=== PATIENT | male | born 1990 | race Hispanic/Latino ===

== ENCOUNTER 2017-11-25 04:58 | Emergency (ER) | payer OTHER ==
[2017-11-25 05:57] LABS: Hematocrit 43.4 % (35.5-45.6); Hemoglobin 14.7 gm/dl (11.8-15.2); Mean Corpuscular HGB Conc 34 % (32-34); Mean Corpuscular Hemoglobin 32 pg (28-32); Mean Corpuscular Volume 94 fl (84-94); Platelet Count 259 K/mm3 (140-440); Red Blood Count 4.62 M/mm3 (3.65-5.03); Red Cell Distribution Width 13.9 % (13.2-15.2)
[2017-11-25 06:24] LABS: BUN/Creatinine Ratio 19; Blood Urea Nitrogen 19 mg/dL (9-20); Calcium 9.6 mg/dL (8.4-10.2); Hemolysis Index 24
[2017-11-25 06:30] LABS: Total Cells Counted 100
[2017-11-25 06:31] LABS: Band Neutrophils # (Manual) 1.7 K/mm3; Basophils % (Manual) 0 % (0.0-1.8); Eosinophils % (Manual) 0 % (0.0-4.3); Platelet Estimate Consistent w Auto; RBC Morphology Normal
[2017-11-25] MEDS ORDERED: PEPCID IV ONE (06:39)
[2017-11-25] MEDS ORDERED: CARAFATE PO ONE (06:39)
[2017-11-25] MEDS ORDERED: REGLAN IV ONE (06:39)
[2017-11-25] MEDS ORDERED: NACL 0.9% 1000 ML 1,000 ML IV ONE (06:41)
--- NOTE | 2017-11-25 06:41 | Emergency Department Report ---
ED General Adult HPI - General Chief complaint: Overdose Stated complaint: OVERDOSE Time Seen by Provider: 11/25/17 06:07 Source: patient, family, EMS (EMS documentation reviewed), RN notes reviewed Mode of arrival: Stretcher Limitations: Other (patient does not have any recollection of the events today.) - History of Present Illness Initial comments: His is a 27-year-old gentleman who is not known to this provider previously. He is brought to the hospital by EMS. As per EMS documentation, "patient admitted to taking Percocet and drugs paraphernalia found in vehicle with patient." EMS documentation that patient was found seated in a car, unresponsive to all stimuli, extremely diaphoretic, with pupils constricted and unresponsive. Patient then became awake, was initially confused, and then became alert and oriented 4. The patient to me indicates that he accidentally cut his left hand with a hammer , and took 4 Percocets, he believes that they were 5 mg each, for pain. He denies other coingestants to me. He estimates his time of ingestion between 3: 00 and 3:30 AM. He reports that he was doing this to control his pain. He denies homicidality and suicidality. He then has no recollection of any of the aforementioned events, and woke up in the ambulance. He currently denies headache, neck pain, chest pain, abdominal pain, shortness of breath, bright red blood per rectum, black tarry stool, homicidality and suicidality. Of note, the patient has an emesis basin next to him, which appears to have coffee-ground emesis, the patient thinks that he threw up in this basin in the field. -: unknown Quality: other Consistency: other Improves with: other Worsens with: other Associated Symptoms: confusion, loss of appetite, malaise, nausea/vomiting, weakness (global weakness). denies: chest pain, cough, diaphoresis, fever/ chills, headaches, rash, seizure, shortness of breath, syncope - Related Data Previous Rx's Medication Instructions Recorded Last Taken Type Naloxone HCl [Narcan Nasal Leonard] 4 mg NS Q1HR PRN #5 spray 11/25/17 Unknown Rx Ondansetron [Zofran Odt] 4 mg PO Q8HR PRN #20 tab.rapdis 11/25/17 Unknown Rx Pantoprazole [Protonix TAB] 20 mg PO QDAY #30 tablet. 11/25/17 Unknown Rx Allergies Allergy/AdvReac Type Severity Reaction Status Date / Time No Known Allergies Allergy Unverified 11/25/17 05:14 ED Review of Systems ROS: Stated complaint: OVERDOSE Other details as noted in HPI Constitutional: malaise. denies: fever Eyes: denies: eye discharge ENT: denies: epistaxis Respiratory: denies: cough Cardiovascular: denies: chest pain Gastrointestinal: denies: abdominal pain, melena, hematochezia Musculoskeletal: arthralgia, myalgia Skin: denies: lesions Neurological: weakness Psychiatric: denies: visual hallucinations, suicidal thoughts ED Past Medical Hx - Social History Smoking Status: Current Every Day Smoker Substance Use Type: None - Medications Home Medications: Home Medications Medication Instructions Recorded Confirmed Last Taken Type Naloxone HCl [Narcan Nasal Leonard] 4 mg NS Q1HR PRN #5 spray 11/25/17 Unknown Rx Ondansetron [Zofran Odt] 4 mg PO Q8HR PRN #20 tab.rapdis 11/25/17 Unknown Rx Pantoprazole [Protonix TAB] 20 mg PO QDAY #30 tablet. 11/25/17 Unknown Rx ED Physical Exam - General Limitations: No Limitations General appearance: alert, in no apparent distress - Head Head exam: Present: atraumatic, normocephalic - Eye Eye exam: Present: normal appearance, PERRL, EOMI. Absent: nystagmus - ENT ENT exam: Present: normal exam, normal orophraynx, mucous membranes moist, normal external ear exam - Neck Neck exam: Present: normal inspection, full ROM. Absent: tenderness, meningismus - Respiratory Respiratory exam: Present: normal lung sounds bilaterally. Absent: respiratory distress - Cardiovascular Cardiovascular Exam: Present: normal rhythm, tachycardia, normal heart sounds. Absent: systolic murmur, diastolic murmur, rubs, gallop - GI/Abdominal GI/Abdominal exam: Present: soft, normal bowel sounds. Absent: distended, tenderness, guarding, rebound, rigid, pulsatile mass - Rectal Rectal exam: Present: deferred - Extremities Exam Extremities exam: Present: normal inspection, full ROM, other (2+ pulses noted in the bilateral upper, lower extremities. Compartments soft. No long bony tenderness. The pelvis is stable.). Absent: pedal edema, joint swelling, calf tenderness - Back Exam Back exam: Present: normal inspection, full ROM. Absent: tenderness, CVA tenderness (R), paraspinal tenderness, vertebral tenderness - Neurological Exam Neurological exam: Present: alert, oriented X3, CN II-XII intact, other ( Extraocular movements intact. Tongue midline. No facial droop. Facial sensation intact to light touch in the V1, V2, V3 distribution bilaterally. 5 and 5 strength in 4 extremities.. Sensation is intact to light touch in 4 extremities.). Absent: motor sensory deficit - Psychiatric Psychiatric exam: Present: normal affect, normal mood. Absent: homicidal ideation, suicidal ideation - Skin Skin exam: Present: warm, dry, intact, normal color. Absent: rash ED Course Vital Signs 11/25/17 11/25/17 11/25/17 05:09 06:34 06:43 Temperature 97.6 F Pulse Rate 99 H 75 Respiratory 18 11 L Rate Blood Pressure 137/68 O2 Sat by Pulse 99 98 Oximetry 11/25/17 11/25/17 11/25/17 06:45 07:00 08:00 Temperature Pulse Rate 91 H 107 H 80 Respiratory 14 14 12 Rate Blood Pressure 121/76 131/81 108/63 O2 Sat by Pulse 97 95 87 Oximetry 11/25/17 09:00 Temperature Pulse Rate 74 Respiratory 14 Rate Blood Pressure 106/63 O2 Sat by Pulse 97 Oximetry - Reevaluation(s) Reevaluation #1: 11/25/17 07:51 Differential diagnosis, including but not limited to: Accidental overdose, polysubstance overdose, left hand fracture, contusion, dislocation, upper GI bleed, Melissa-Salazar tear Assessment and plan: 27-year-old male with probable accidental overdose. Patient is currently alert and oriented to name, place, month, location, he is clinically sober at this time, and exhibits decision-making capacity and is free from distracting injury. His serum toxicology studies were unremarkable for significant toxicity, his laboratory studies were unremarkable with the exception of leukocytosis, which is most likely a stress reaction, possibly due to sympathomimetic: Ingestion. His emesis basin does have black coffee grounds in it. I highly doubt that the patient had an episode of loss of consciousness from the reported Percocet ingestion, and instead I suspect a polysubstance overdose. I therefore have recommended admission to the hospital for airway monitoring, cardiac monitoring, and gastroenterology evaluation. The patient is currently declining this and is going to sign out AGAINST MEDICAL ADVICE. The patient is alert and oriented 3 at this time, clinically sober, free from distracting injury, and demonstrates decision-making capacity. Patient able to describe risks benefits in his own words. The risks of leaving, including , disability, paralysis, permanent loss of quality of life were discussed with the patient who verbalized understanding in his own words. This conversation is further witnessed by both his mother and his father, and nurse Cass Pitt 11/25/17 07:53 11/25/17 15:47 ED Medical Decision Making - Lab Data Result diagrams: 11/25/17 05:25 11/25/17 05:25 Vital Signs 11/25/17 11/25/17 11/25/17 05:09 06:34 06:43 Temperature 97.6 F Pulse Rate 99 H 75 Respiratory 18 11 L Rate Blood Pressure 137/68 O2 Sat by Pulse 99 98 Oximetry 11/25/17 06:45 Temperature Pulse Rate 91 H Respiratory 14 Rate Blood Pressure 121/76 O2 Sat by Pulse 97 Oximetry Lab Results 11/25/17 11/25/17 11/25/17 Range/Units 05:25 05:25 05:25 WBC (4.5-11.0) K/mm3 RBC (3.65-5.03) M/mm3 Hgb (11.8-15.2) gm/dl Hct (35.5-45.6) % MCV (84-94) fl MCH (28-32) pg MCHC (32-34) % RDW (13.2-15.2) % Plt Count (140-440) K/mm3 Add Manual Diff Total Counted Seg Neuts % (Manual) (40.0-70.0) % Band Neutrophils % % Lymphocytes % (Manual) (13.4-35.0) % Reactive Lymphs % (Man) % Monocytes % (Manual) (0.0-7.3) % Eosinophils % (Manual) (0.0-4.3) % Basophils % (Manual) (0.0-1.8) % Metamyelocytes % % Myelocytes % % Promyelocytes % % Blast Cells % % Nucleated RBC % Seg Neutrophils # Man (1.8-7.7) K/mm3 Band Neutrophils # K/mm3 Lymphocytes # (Manual) (1.2-5.4) K/mm3 Abs React Lymphs (Man) K/mm3 Monocytes # (Manual) (0.0-0.8) K/mm3 Eosinophils # (Manual) (0.0-0.4) K/mm3 Basophils # (Manual) (0.0-0.1) K/mm3 Metamyelocytes # K/mm3 Myelocytes # K/mm3 Promyelocytes # K/mm3 Blast Cells # K/mm3 WBC Morphology Hypersegmented Neuts Hyposegmented Neuts Hypogranular Neuts Smudge Cells Toxic Granulation Toxic Vacuolation Dohle Bodies Pelger-Huet Anomaly Alexa Rods Platelet Estimate Clumped Platelets Plt Clumps, EDTA Large Platelets Giant Platelets Platelet Satelliting Plt Morphology Comment RBC Morphology Dimorphic RBCs Polychromasia Hypochromasia Poikilocytosis Anisocytosis Microcytosis Macrocytosis Spherocytes Pappenheimer Bodies Sickle Cells Target Cells Tear Drop Cells Ovalocytes Helmet Cells Roman-Crest[place] Bodies [place] Rings [place] Cells Bite Cells Crenated Cell Elliptocytes Acanthocytes (Spur) Rouleaux Hemoglobin C Crystals Schistocytes Malaria parasites Jose C Bodies Hem Pathologist Commnt Sodium 141 (137-145) mmol/L Potassium 4.1 (3.6-5.0) mmol/L Chloride 99.6 (98-107) mmol/L Carbon Dioxide 26 (22-30) mmol/L Anion Gap 20 mmol/L BUN 19 (9-20) mg/dL Creatinine 1.0 (0.8-1.5) mg/dL Estimated GFR > 60 ml/min BUN/Creatinine Ratio 19 % Glucose 127 H (75-100) mg/dL Calcium 9.6 (8.4-10.2) mg/dL Total Creatine Kinase (55-170) units/L Salicylates < 0.3 L (2.8-20.0) mg/dL Acetaminophen < 5.0 L (10.0-30.0) ug/mL Plasma/Serum Alcohol (0-0.07) % 11/25/17 11/25/17 11/25/17 Range/Units 05:25 05:25 05:25 WBC 23.9 H (4.5-11.0) K/mm3 RBC 4.62 (3.65-5.03) M/mm3 Hgb 14.7 (11.8-15.2) gm/dl Hct 43.4 (35.5-45.6) % MCV 94 (84-94) fl MCH 32 (28-32) pg MCHC 34 (32-34) % RDW 13.9 (13.2-15.2) % Plt Count 259 (140-440) K/mm3 Add Manual Diff Complete Total Counted 100 Seg Neuts % (Manual) 81.0 H (40.0-70.0) % Band Neutrophils % 7.0 % Lymphocytes % (Manual) 9.0 L (13.4-35.0) % Reactive Lymphs % (Man) 0 % Monocytes % (Manual) 3.0 (0.0-7.3) % Eosinophils % (Manual) 0 (0.0-4.3) % Basophils % (Manual) 0 (0.0-1.8) % Metamyelocytes % 0 % Myelocytes % 0 % Promyelocytes % 0 % Blast Cells % 0 % Nucleated RBC % Not Reportable Seg Neutrophils # Man 19.4 H (1.8-7.7) K/mm3 Band Neutrophils # 1.7 K/mm3 Lymphocytes # (Manual) 2.2 (1.2-5.4) K/mm3 Abs React Lymphs (Man) 0.0 K/mm3 Monocytes # (Manual) 0.7 (0.0-0.8) K/mm3 Eosinophils # (Manual) 0.0 (0.0-0.4) K/mm3 Basophils # (Manual) 0.0 (0.0-0.1) K/mm3 Metamyelocytes # 0.0 K/mm3 Myelocytes # 0.0 K/mm3 Promyelocytes # 0.0 K/mm3 Blast Cells # 0.0 K/mm3 WBC Morphology Not Reportable Hypersegmented Neuts Not Reportable Hyposegmented Neuts Not Reportable Hypogranular Neuts Not Reportable Smudge Cells Not Reportable Toxic Granulation Not Reportable Toxic Vacuolation Not Reportable Dohle Bodies Not Reportable Pelger-Huet Anomaly Not Reportable Alexa Rods Not Reportable Platelet Estimate Consistent w auto Clumped Platelets Not Reportable Plt Clumps, EDTA Not Reportable Large Platelets Not Reportable Giant Platelets Not Reportable Platelet Satelliting Not Reportable Plt Morphology Comment Not Reportable RBC Morphology Normal Dimorphic RBCs Not Reportable Polychromasia Not Reportable Hypochromasia Not Reportable Poikilocytosis Not Reportable Anisocytosis Not Reportable Microcytosis Not Reportable Macrocytosis Not Reportable Spherocytes Not Reportable Pappenheimer Bodies Not Reportable Sickle Cells Not Reportable Target Cells Not Reportable Tear Drop Cells Not Reportable Ovalocytes Not Reportable Helmet Cells Not Reportable Roman-[place]rest[place] Bodies Not Reportable [place] Rings Not Reportable [place] Cells Not Reportable Bite Cells Not Reportable Crenated Cell Not Reportable Elliptocytes Not Reportable Acanthocytes (Spur) Not Reportable Rouleaux Not Reportable Hemoglobin C Crystals Not Reportable Schistocytes Not Reportable Malaria parasites Not Reportable Jose C Bodies Not Reportable Hem Pathologist Commnt No Sodium (137-145) mmol/L Potassium (3.6-5.0) mmol/L Chloride (98-107) mmol/L Carbon Dioxide (22-30) mmol/L Anion Gap mmol/L BUN (9-20) mg/dL Creatinine (0.8-1.5) mg/dL Estimated GFR ml/min BUN/Creatinine Ratio % Glucose (75-100) mg/dL Calcium (8.4-10.2) mg/dL Total Creatine Kinase 701 H (55-170) units/L Salicylates (2.8-20.0) mg/dL Acetaminophen (10.0-30.0) ug/mL Plasma/Serum Alcohol < 0.01 (0-0.07) % - EKG Data -: EKG Interpreted by Me EKG shows normal: sinus rhythm Rate: normal - EKG Data When compared to previous EKG there are: previous EKG unavailable 11/25/17 07:54 Sinus, 77 bpm, normal axis, QTC prolonged, motion artifact, not having chest pain, this EKG is not a STEMI - Radiology Data Radiology results: report reviewed, image reviewed Noncontrast CT scan of the brain is negative for acute disease. X-ray the hand, interpreted by me: No acute disease Critical care attestation.: If time is entered above; I have spent that time in minutes in the direct care of this critically ill patient, excluding procedure time. ED Disposition Clinical Impression: Overdose, Coffee ground emesis Disposition: LEFT AGAINST MED ADVICE Is pt being admited?: No Does the pt Need Aspirin: No Condition: Undetermined Instructions: Gastrointestinal Bleeding (ED), Narcotic Abuse (ED) Additional Instructions: As we discussed, you have left the hospital/emergency room AGAINST MEDICAL ADVICE. By leaving, you risked , disability, paralysis, permanent loss of quality of life. The ER is open 24 hours a day, 7 days a week. It never closes. Please return to the emergency room right away if and when you change your mind. If you decide not to return to the emergency room, please follow-up with the listed physician referrals as soon as possible. Do not drive or operate motor vehicles or heavy machinery until cleared by a primary care doctor. Avoid consumption of Motrin, ibuprofen, Naprosyn, Aleve. Follow-up as soon as possible with the food quality tester for possible upper GI bleed. Take the medications as needed/directed. Prescriptions: Naloxone HCl [Narcan Nasal Leonard] 4 mg NS Q1HR PRN #5 spray PRN Reason: Overdose Ondansetron [Zofran Odt] 4 mg PO Q8HR PRN #20 tab.rapdis PRN Reason: Nausea Pantoprazole [Protonix TAB] 20 mg PO QDAY #30 tablet. Referrals: [facility] [Provider Group] - 3-5 Days [facility] [Provider Group] - 3-5 Days Forms: AMA Form
--- NOTE | 2017-11-25 07:40 | Cat Scan Report ---
FINAL REPORT PROCEDURE: CT HEAD/BRAIN WO CON TECHNIQUE: Computerized tomography of the head was performed without contrast material. HISTORY: hx of ams COMPARISON: No prior studies are available for comparison. FINDINGS: Skull and scalp: Normal. Paranasal sinuses: There is fluid in the left maxillary sinus and the ethmoid air cells. There is a 2 centimeter polyp or retention cyst in the right maxillary sinus.. Ventricles and subarachnoid spaces: There is no hydrocephalus. Ventricles and cortical sulci are symmetrical and appropriate for the patient's age. Cerebrum: No evidence of hemorrhage, acute infarction or mass . Cerebellum and brainstem: No evidence of hemorrhage, acute infarction or mass. Vasculature: Normal. Comments: None. IMPRESSION: There is no acute intracranial abnormality. There is ethmoid and left maxillary sinusitis.
--- NOTE | 2017-11-25 07:55 | XRay Report ---
FINAL REPORT PROCEDURE: XR HAND 3+V LT TECHNIQUE: LEFT hand radiographs, AP, lateral, and oblique views. CPT 07388-CN HISTORY: left hadn pain COMPARISON: No prior studies are available for comparison. FINDINGS: Fracture (s) and/or Dislocation(s): None . Alignment: Normal . Joint space(s): Normal . Soft tissues: Normal . Bone mineralization: Normal . Foreign bodies: None . IMPRESSION: Normal Examination .
[2017-11-25 09:46] VITALS: BP 106/63
== END 2017-11-25 09:10 | disposition left against medical advice (07) ==
LOC: ED 04:58
DX: T40.2X1A Poisoning by other opioids, accidental (unintentional), initial encounter (principal); K92.0 Hematemesis; F17.200 Nicotine dependence, unspecified, uncomplicated; Y92.89 Other specified places as the place of occurrence of the external cause
CPT/HCPCS: 36415; 70450; 73130; 80048; 82550; 85007; 85025; 93005; 93010; 96361; 96374; 96375; 99285; G0480; J2765; J7030; 80320